=== PATIENT | female | born 1965 | race Caucasian/White ===

== ENCOUNTER 2020-03-19 16:27 | Inpatient (IN) | payer SELFPAY ==
[~2020-03-19] VITALS: Ht 162.6 cm; Wt 79.2 kg
[~2020-03-19 16:27] MED LIST: CHANTIX1 TAB PO; LEVOTHROID SOD0.1 MG PO; NORCO 325 MG-51 TAB PO; PRIL40 PO; ZOFRAN 4MG T4 MG/TAB PO
--- NOTE | 2020-03-19 18:45 | NUR ---
patient has not arrived on unit, report recieved from nurse at [facility] and this report was given to CABRERA Roberts
[2020-03-19 19:08] VITALS: BP 108/62; PULSE 105; TEMP 98.7
--- NOTE | 2020-03-19 19:15 | NUR ---
Patient to medical room 317 at this time. She appears very drowsy but arouses to voice and is alert and oriented. She states her abdominal pain has been relieved with pain meds received at [facility]. She is oriented to room, call light and fall precautions. Assessment B complete.
[2020-03-19 19:37] VITALS: BP 108/62; PULSE 102; TEMP 98.7
[2020-03-19 23:02] VITALS: BP 141/71; PULSE 108; TEMP 100.1
[2020-03-20] VITALS (7 sets, daily range): BP systolic 134–156; BP diastolic 70–102; PULSE 76–98; TEMP 98.1–99
--- NOTE | 2020-03-20 06:30 | NUR ---
Pt sleeping at this time. Easily aroused to voice. Pt currently not in any pain. MRCP/MRI scheduled for this AM. Will continue to monitor. No further concerns at this time.
[2020-03-20 07:11] LABS: BASO % 0.3 % (0.0-2.0); EOS # 0.2 (0.0-0.7); EOS % 1.9 % (0-4.0); GRAN % 80.6 % (42.2-75.2); HEMATOCRIT 42.6 % (37.0-47.0); HEMOGLOBIN 14.2 g/dl (12.5-16.0); LYMPH # 0.9 (1.2-3.4); LYMPH % 9.8 % (20.0-51.0); MEAN CELL VOLUME 90 fl (80.0-100.0); MEAN CORPUSCULAR HEMOGLOBIN 30 pg (27.0-31.0); MEAN CORPUSCULAR HGB CONC 33 g/dl (33.0-37.0); MEAN PLATELET VOLUME 10.8 fl (7.4-10.4); MONO # 0.6 (0.1-0.6); MONO % 7.2 % (1.7-9.3); PLATELET COUNT 347 K/mm3 (130-400); RED BLOOD COUNT 4.76 M/mm3 (4.10-5.30); REDCELL DISTRIBUTION WIDTH-CV 12.6 % (11.5-14.5)
[2020-03-20 07:31] LABS: ALBUMIN 3.6 gm/dL (3.5-5.0); BILIRUBIN,TOTAL 5.2 mg/dL (0.0-1.0); CALCIUM 8.3 mg/dL (8.4-10.2); CREATININE, serum 0.95 (0.52-1.25); POTASSIUM 3.7 mmol/L (3.4-5.0)
[2020-03-20 07:48] LABS: BILIRUBIN,DIRECT 3.7 mg/dL (0.0-0.4)
--- NOTE | 2020-03-20 14:56 | NUR ---
Pt currently at MRI, called MRI to check on pt. Pt is doing better with this MRI, and it should be completed soon.
--- NOTE | 2020-03-20 19:59 | NUR ---
CHANGE OF SHIFT REPORT RECEIVED. PATIENT RESTING IN BED. IVF INFUSING. PATIENT REPORTS NEEDING TO CALL , PHONE IN ROOM NOT WORKING. PATIENT WEEPY.
--- NOTE | 2020-03-20 20:16 | NUR ---
REPORTS WHEN AMBULATES TO BATHROOM "I JUST FEEL WEAK". REPORTS URINE IS BROWN IN COLOR WITH NO SEDIMENT/DEBRIS OBSERVED BY PATIENT, DENIES BURNING/PAIN/URGENCY WITH VOIDING. PATIENT RESTING IN BED, DENIES CHEST PAIN/SHORTNESS OF BREATH. REPORTS PASSING FLATUS AND HAD BM "2 DAYS AGO...WHEN I LAST ATE"
--- NOTE | 2020-03-20 20:29 | NUR ---
PATIENT ATTEMPTING TO CONTACT HER EMPLOYER AND HER , ROSEANNA DARBY IN ROOM NOT WORK, USING HOSPITAL CELL TO CALL HER MOM FOR HER WORK #.
[2020-03-21 03:28] VITALS: BP 168/85; PULSE 86; TEMP 98.5
--- NOTE | 2020-03-21 04:30 | NUR ---
PATIENT RESTING WITH EYES CLOSED, BREATHING NONLABORED AND EVEN. IVF INFUSING WITH NO PROBLEMS.
--- NOTE | 2020-03-21 05:33 | NUR ---
PATIENT REMAINS NPO FOR SCHEDULED ERCP TODAY.
--- NOTE | 2020-03-21 07:07 | NUR ---
CHANGE OF SHIFT REPORT GIVEN TO DAY SHIFT NURSESINGH. IVF INFUSING WITH NO PROBLEMS, PATIENT NPO FOR SCHEDULE PROCEDURE LATER THIS MORNING.
[2020-03-21 07:11] LABS: BASO # 0.1 (0.0-0.2); BASO % 0.9 % (0.0-2.0); EOS # 0.3 (0.0-0.7); EOS % 4.4 % (0-4.0); GRAN # 4.1 (1.4-6.5); GRAN % 73.2 % (42.2-75.2); HEMATOCRIT 40.6 % (37.0-47.0); HEMOGLOBIN 13.6 g/dl (12.5-16.0); LYMPH # 0.8 (1.2-3.4); MEAN CELL VOLUME 90 fl (80.0-100.0); MEAN CORPUSCULAR HEMOGLOBIN 30 pg (27.0-31.0); MEAN CORPUSCULAR HGB CONC 34 g/dl (33.0-37.0); MEAN PLATELET VOLUME 10.9 fl (7.4-10.4); MONO # 0.4 (0.1-0.6); MONO % 7.1 % (1.7-9.3); PLATELET COUNT 318 K/mm3 (130-400); RED BLOOD COUNT 4.51 M/mm3 (4.10-5.30); REDCELL DISTRIBUTION WIDTH-CV 12.4 % (11.5-14.5)
[2020-03-21 07:28] LABS: ALBUMIN 3.5 gm/dL (3.5-5.0); BILIRUBIN,TOTAL 1.7 mg/dL (0.0-1.0); CALCIUM 8.2 mg/dL (8.4-10.2); CREATININE, serum 0.82 (0.52-1.25); POTASSIUM 3.2 mmol/L (3.4-5.0); TOTAL PROTEIN 6.9 gm/dL (6.4-8.2)
[2020-03-21 08:02] VITALS: BP 135/73; PULSE 75; TEMP 97.4
--- NOTE | 2020-03-21 08:08 | NUR ---
Pt laying in bed at this time. Not requesting anything at this time. Pt continues to be NPO. Contacted provider for orders due to Low Potassium and Low Blood Glucose. Will continue to monitor. Student Nurse, Sammi will be assisting today. No further concerns.
--- NOTE | 2020-03-21 10:18 | NUR ---
Front Office Developer attended clinical rounds with the team. After rounds, SW met with the patient to complete initial intake. The patient lives in [place] with her boyfriend, Marshall Romano #[phone]. They only have one phone between them both. The patient denies DME use and is independent with ADLs. The patient's PCP is at [facility] in and patient receives medications from [facility] in . The patient does not have advanced directives. She was interested in DPOA-HC form. Form provided. The patient states she has no children and her parents have . The patient has several siblings Carolynn Church, Ashlyn Duarte, Man Tate, Marika Garcia, Salvador Tate, and Myrna Park. She does not have any phone numbers for them since Marshall has the only phone between them. The patient plans to return home at discharge. While in the room ROXANNA attempted to contacted Marshall. He did not answer and the mailbox was full. The patient has another point of contact is Ana María Fung. The patient is a . Ana María is the patient's 's mother. Ana María answered the phone she was busy at an appointment. The patient requested that Ana María contact Marshall about bringing the phone up to the hospital to her. Ana María reports she will try and bring the patient's the phone. ROXANNA collaborated the above information with the patient's nurse.
[2020-03-21 11:42] VITALS: BP 136/72; PULSE 86; TEMP 98.1
[2020-03-21 11:56] VITALS: BP 148/76; PULSE 78; TEMP 98.6
--- NOTE | 2020-03-21 13:42 | NUR ---
Primary nurse was assisted with [id number] patient care by [employer] student Sammi Mane and [employer] instructor Sahara Adams RN-.
--- NOTE | 2020-03-21 14:29 | NUR ---
Pt up to void, then leaving for ERCP.
[2020-03-21 19:19] VITALS: BP 149/78; PULSE 75; TEMP 97.9
[2020-03-22] VITALS: BP 119/58; PULSE 75; TEMP 98.4
[2020-03-22 04:00] VITALS: BP 124/68; PULSE 71; TEMP 98.2
[2020-03-22 06:30] LABS: BASO # 0.1 (0.0-0.2); BASO % 0.9 % (0.0-2.0); EOS # 0.2 (0.0-0.7); EOS % 3.8 % (0-4.0); GRAN # 4.1 (1.4-6.5); HEMATOCRIT 39.3 % (37.0-47.0); HEMOGLOBIN 13.7 g/dl (12.5-16.0); LYMPH # 0.7 (1.2-3.4); LYMPH % 12.4 % (20.0-51.0); MEAN CELL VOLUME 89 fl (80.0-100.0); MEAN CORPUSCULAR HEMOGLOBIN 31 pg (27.0-31.0); MEAN CORPUSCULAR HGB CONC 35 g/dl (33.0-37.0); MEAN PLATELET VOLUME 10.3 fl (7.4-10.4); MONO # 0.5 (0.1-0.6); MONO % 9.5 % (1.7-9.3); PLATELET COUNT 332 K/mm3 (130-400); RED BLOOD COUNT 4.44 M/mm3 (4.10-5.30); REDCELL DISTRIBUTION WIDTH-CV 12.1 % (11.5-14.5)
[2020-03-22 06:39] LABS: ALBUMIN 3.8 gm/dL (3.5-5.0); BILIRUBIN,TOTAL 1.1 mg/dL (0.0-1.0); CALCIUM 8.5 mg/dL (8.4-10.2); CREATININE, serum 0.72 (0.52-1.25); POTASSIUM 3.6 mmol/L (3.4-5.0); TOTAL PROTEIN 7.2 gm/dL (6.4-8.2)
--- NOTE | 2020-03-22 08:01 | NUR ---
PT IN BED WITH HOB ELEVATED, A/O X3 WITH NO C/O PAIN OR DISCOMFORT. PT ATE BREAKFAST AND TOLERATED WELL. PT HAS CALL LIGHT WITHIN REACH AND PERSONAL BELONGINGS, NO NEEDS AT THIS TIME.
[2020-03-22 09:03] VITALS: BP 136/79; PULSE 79; TEMP 98.8
[2020-03-22 12:36] VITALS: BP 138/80; PULSE 80; TEMP 98.3
--- NOTE | 2020-03-22 13:32 | NUR ---
PT STABLE AND A/O X3, WITH NO C/O PAIN OR DISCOMFORT, REMOVED IV FROM RIGHT HAND, CATHETER IN TACT, APPLIED PRESSURE TILL BLEEDING STOPPED, AND APPLIED DRSG. PT TAKEN DOWN BY FIREBOAT OPERATOR TO PRIVATE VEHICLE, ESCORTED BY [id number].
== END 2020-03-22 13:40 | disposition home or self-care (01) | DRG 446 ==
LOC: MEDICAL 18:49
PROVIDERS: Internal Medicine; Internal Medicine Gastroenterology; Physician Assistant; ADMIT Hospitalist
PROC: 0FC98ZZ Extirpation of Matter from Common Bile Duct, Via Natural or Artificial Opening Endoscopic (ICD-10-PCS; 2020-03-21)
PROC: BF181ZZ Fluoroscopy of Pancreatic Ducts using Low Osmolar Contrast (ICD-10-PCS; 2020-03-21)
PROC: 0FCD8ZZ Extirpation of Matter from Pancreatic Duct, Via Natural or Artificial Opening Endoscopic (ICD-10-PCS; principal; 2020-03-21 10:00)
DX: K80.20 Calculus of gallbladder without cholecystitis without obstruction (principal); R74.01 Elevation of levels of liver transaminase levels; G89.29 Other chronic pain; K58.9 Irritable bowel syndrome, unspecified; F17.210 Nicotine dependence, cigarettes, uncomplicated; F15.10 Other stimulant abuse, uncomplicated; K57.10 Diverticulosis of small intestine without perforation or abscess without bleeding; Z20.828 Contact with and (suspected) exposure to other viral communicable diseases; E87.6 Hypokalemia; Z87.11 Personal history of peptic ulcer disease; Z90.49 Acquired absence of other specified parts of digestive tract; Z90.710 Acquired absence of both cervix and uterus
CPT/HCPCS: 99222-AI; 99232-AI; 99239; C1769; C9113; J1610; J1650; J2270; J2704; J3010; J7030; Q9967